=== PATIENT | male | born 1980 | race Hispanic/Latino ===

== ENCOUNTER 2021-09-09 20:36 | Emergency (ER) | payer SELFPAY | END 2021-09-09 22:12 | disposition home or self-care (01) | LOC: ERS 20:36 | DX: L03.031 Cellulitis of right toe (principal) | CPT/HCPCS: 99283 ==

== ENCOUNTER 2022-03-04 11:02 | Emergency (ER) | payer SELFPAY ==
[2022-03-04 11:40] LABS: Bilirubin Negative (Negative); Blood, Urine Negative (Negative); Clarity Clear (Clear); Glucose, Urine (Dipstick) Normal (Negative); Ketone, Urine Negative (Negative); Leukocyte Negative Leu/uL (Negative); Nitrite Negative (Negative); Protein, Urine (Dipstick) Negative (Neg-Trace); Specific Gravity, Urine 1.008 (1.002-1.036); Urobilinogen Normal mg/dL (Less than 2); pH, Urine 5.5 (5.0-9.0)
[2022-03-04 13:30] LABS: Anion Gap 13 mmol/L (10-20); BUN (Urea Nitrogen) 13 mg/dL (8.9-20.6); Calc. Creatinine Clearance 0 mL/min (70-130); Calcium 9.6 mg/dL (7.8-10.44); Carbon Dioxide 25 mmol/L (22-29); Chloride 104 mmol/L (98-107); Estimated GFR 117; Glucose 96 mg/dL (70-105); Potassium 3.8 mmol/L (3.5-5.1); Sodium 138 mmol/L (136-145)
[2022-03-05 15:32] LABS: Chlam.trachomatis by PCR,Urine Not Detected (NotDetected)
== END 2022-03-04 13:52 | disposition home or self-care (01) ==
LOC: ERS 11:02
DX: R30.0 Dysuria (principal); Z87.448 Personal history of other diseases of urinary system
CPT/HCPCS: 36415; 80048; 81003; 87086; 87491; 87591; 99283